=== PATIENT | female | born 1935 | race Caucasian/White ===

== ENCOUNTER 2021-12-17 14:01 | Outpatient (CLI) | payer MEDICARE, OTHER | END 2021-12-17 14:02 | disposition home or self-care (01) | LOC: BICRAD 14:01 | PROVIDERS: ATTEND Internal Medicine Cardiovascular Disease | DX: Z11.1 Encounter for screening for respiratory tuberculosis (principal) | CPT/HCPCS: 71046 ==

== ENCOUNTER 2022-03-24 21:09 | Emergency (ER) | payer MEDICARE, OTHER | END 2022-03-24 23:50 | LOC: ERS 21:09 | DX: S40.011A Contusion of right shoulder, initial encounter (principal); E78.00 Pure hypercholesterolemia, unspecified; I10 Essential (primary) hypertension; W18.30XA Fall on same level, unspecified, initial encounter; Y93.01 Activity, walking, marching and hiking; Y92.129 Unspecified place in nursing home as the place of occurrence of the external cause | CPT/HCPCS: 70450; 71045; 72170; 93005 ==